=== PATIENT | male | born 1935 | race Caucasian/White ===

== ENCOUNTER 2021-04-24 17:37 | Emergency (ER) | payer MEDICARE, OTHER, SELFPAY ==
[2021-04-24 17:56] VITALS: BP 166/87; PULSE 56; RESP 16; TEMP 36.9; O2SAT 97
--- NOTE | 2021-04-24 18:32 | ED_ITS ---
HPI - Eye Problem General: Chief complaint: Eye Problems Stated complaint: Something in rt eye Time Seen by Provider: 04/24/21 18:01 History of Present Illness: HPI Narrative: Patient is an 85-year-old male comes to the ED with redness of the right eye. Patient says yesterday he was out using his leaf blower. Denies any foreign body or known injury to right eye. This morning when he woke up he had eye redness in right eye that was localized to the lateral aspect of eye. Denies any eye pain or vision changes. He irrigated his eyes out with some tap water while at home. Associated symptoms: Denies fever(s), headache(s), nausea, neck pain or vomiting Review of Systems Const: Denies: fever(s), chills or fatigue Eyes: Reports: eye redness (Localized redness to right eye); Denies: change in vision or eye discomfort ENMT: Denies: throat pain, odynophagia, nasal discharge or nasal congestion Card: Denies: chest pain, palpitations, edema, swelling of feet/ankles, dyspnea on exertion or orthopnea Resp: Denies: dyspnea, productive cough or non-productive cough GI: Denies: abdominal pain, nausea, vomiting, diarrhea, constipation or hematochezia : Denies: flank pain, difficulty urinating, dysuria or hematuria Musc: Denies: neck pain, back pain or extremity swelling Skin/Breast: Denies: rash or new lesions Neuro: Denies: headache(s), numbness in extremities or weakness in extremities PFS ED PFSH: Medical History ASHD (arteriosclerotic heart disease) HTN (hypertension) Myocardial infarction Surgical History S/P PTCA (percutaneous transluminal coronary angioplasty) Family History Brother CAD (coronary artery disease) Social History Smoking and tobacco status: never smoked Alcohol intake: never Household members: spouse Marital status: service: Yes branch: [employer] Current occupational status: retired Physical Exam Const: COMMON NORMALS: no acute distress, patient oriented x3, healthy appearing and alert GENERAL APPEARANCE: cooperative and comfortable HENMT: COMMON NORMALS: normocephalic HEAD & SCALP: normocephalic MOUTH: Normal oral and palatal mucosa present THROAT: posterior oropharynx normal and uvula midline Eye: COMMON NORMALS: Equal, round and reactive pupils present and EOMs intact bilaterally CONJUNCTIVA: Yes conjunctival abnormal positive right alexandra bconjunctival hemorrhage (Lateral aspect of) PUPIL: Yes Equal, round and reactive pupils present OTHER: No foreign body noted on eye exam. Fluorescein eye dye was performed with lamp and no abrasions noted. Neck/C-Spine: COMMON NORMALS: supple GENERAL: Yes normal visual inspection Resp: COMMON NORMALS: normal respiratory effort, No retractions, No use of accessory muscles and clear to auscultation bilaterally AUSCULTATION: clear to auscultation bilaterally Cardio: COMMON NORMALS: regular rate, regular rhythm, S1 normal heart sound present, S2 normal heart sound present, No gallops present (Cardio), No clicks present (Cardio), No murmurs present (Cardio) and Peripheral pulses 2+ throughout RATE: regular rate RHYTHM: regular rhythm HEART SOUNDS: S1 normal heart sound present and S2 normal heart sound present PERIPHERAL PULSES: Peripheral pulses 2+ throughout GI: COMMON NORMALS: Normal to inspection, nondistended, normoactive bowel sounds present, Soft to palpation, non-tender and no masses PALPATION: Yes Soft to palpation : COMMON NORMALS: Yes no CVA tenderness BLADDER/KIDNEY EXAM: Yes no CVA tenderness Back/Pelvis: COMMON NORMALS: no CVA tenderness Extremity: COMMON NORMALS: normal to inspection Neuro: COMMON NORMALS: patient oriented x3 and moves all extremities SENSORIUM/ORIENTATION: Yes alert Skin: GENERAL SKIN EXAM: dry skin Course Vital Signs: Vital signs: Vital Signs Temperature 98.4 F 04/24/21 17:56 Pulse Rate 56 L 04/24/21 17:56 Respiratory Rate 16 04/24/21 17:56 Blood Pressure 166/87 04/24/21 17:56 Pulse Oximetry 97 04/24/21 17:56 MDM - Eye Problem MDM Narrative: Medical decision making narrative: Patient is 85-year-old male comes to the ED with right eye redness. Patient denies any foreign body or injury to right eye. Denies any pain or vision changes. He woke up this morning with redness and no other symptoms. Exam of eyes shows subconjunctival hemorrhage that is localized to the lateral aspect of right eye. No foreign body seen. Fluorescein eye used with lamp and no abrasions noted. Patient was diagnosed with conjunctival hemorrhage of right eye was discharged home with a prescription for erythromycin eye ointment. He was told to follow-up with his eye doctor within [address] [facility] in 48 hours for further evaluation. Return to ED precautions given. Patient understood agree with plan. Discharge Plan Discharge Patient Disposition: Home Clinical Impression: Conjunctival hemorrhage of right eye Condition: Stable Prescriptions: No Action aspirin [Aspir-81] 81 mg tablet,delayed release (DR/EC) 81 mg PO DAILY RF: 0 carvedilol 3.125 mg tablet 3.125 mg PO BID RF: 0 rosuvastatin 40 mg tablet 40 mg PO DAILY RF: 0 lisinopril 30 mg tablet 30 mg PO DAILY RF: 0 tamsulosin 0.4 mg capsule 0.4 mg PO DAILY RF: 0 amlodipine 5 mg tablet 5 mg PO DAILY Qty: 90 RF: 2 Discharge Orders: Discharge ED (Routine); Ordered 04/24/21 Ordered By: Karl Oropeza Referrals: Terrell Suárez MD [Primary Care Provider] - Discharge Diet: Regular Discharge Activity: Resume usual activity Patient Instructions: Subconjunctival Hemorrhage (ED) Activity Restrictions/Additional Instructions: Follow-up with medical provider as directed. Call your local eye doctor or [facility] on Monday phone number is [phone]. Address is [facility] [address]. take medications as prescribed. Return to the ER or your medical provider if condition worsens. Please read and understand discharge instructions. If any questions, please ask. Coding Level of Care Code ED Fat Pressroom Worker for Dhiraj Grewal
[2021-04-24] MEDS: fluorescein 1 mg Strip EYE-RIGHT (18:37)
[2021-04-24] MEDS: eye irrigation 30 mL Btl EYE-RIGHT (18:37)
[2021-04-24] MEDS: tetracaine 0.5% Op Soln 4 mL Btl 1 DROP EYE-RIGHT (18:37)
[2021-04-24] MEDS: erythromycin Op Oint 1 gm 1 APPLIC EYE-RIGHT (18:42)
== END 2021-04-24 18:49 | disposition home or self-care (01) ==
PROVIDERS: Emergency Provider Physician Assistant; PCP Family Medicine
DX: H11.31 Conjunctival hemorrhage, right eye (principal); Z79.82 Long term (current) use of aspirin; I10 Essential (primary) hypertension; I25.2 Old myocardial infarction
CPT/HCPCS: 99283

== ENCOUNTER → 2022-03-04 08:47 | Outpatient (BNVA) | payer MEDICARE, OTHER, SELFPAY | PROVIDERS: PCP Family Medicine; Visit Provider Internal Medicine | DX: I25.10 Atherosclerotic heart disease of native coronary artery without angina pectoris (principal); I10 Essential (primary) hypertension; I25.2 Old myocardial infarction; Z98.61 Coronary angioplasty status | CPT/HCPCS: 99213; 99214 ==

== ENCOUNTER → 2022-12-14 09:55 | Outpatient (BNVA) | payer MEDICARE, OTHER, SELFPAY | PROVIDERS: PCP Family Medicine; Visit Provider Surgery | DX: K42.9 Umbilical hernia without obstruction or gangrene (principal); K40.90 Unilateral inguinal hernia, without obstruction or gangrene, not specified as recurrent | CPT/HCPCS: 99203 ==

== ENCOUNTER → 2023-03-13 14:52 | Outpatient (BNVA) | payer MEDICARE, OTHER, SELFPAY | PROVIDERS: PCP Family Medicine; Visit Provider Internal Medicine | DX: I25.10 Atherosclerotic heart disease of native coronary artery without angina pectoris (principal); I10 Essential (primary) hypertension; I25.2 Old myocardial infarction | CPT/HCPCS: 99214 ==

== ENCOUNTER 2023-08-16 14:21 | Outpatient (CLI) | payer MEDICARE, OTHER, SELFPAY ==
--- NOTE | 2023-08-16 14:26 | CT_ITS ---
WS: [id number] CT chest wo con [id number] HISTORY: PLEURAL EFFUSION TECHNIQUE: Axial imaging performed through the thorax. Coronal and sagittal reformats are submitted. All CT scans at [facility] use at least one of these dose optimization techniques: automated exposure control; mA and/or kV adjustment per patient size (includes targeted exams where dose is mat ched to clinical indication); or iterative reconstruction. CONTRAST: None DLP: 422.75 mGy.cm COMPARISON: Chest radiograph 07/17/2023 Lungs and central airway: Mild chronically elevated RIGHT diaphragm with basilar atelectasis. There a re also a few calcifications along the diaphragmatic surface. No pleural effusion. Pleura: Normal. No pleural effusion. Heart and pericardium: Mild cardiomegaly and coronary artery calcifications. Mediastinum and alexandra: Mediastinal and hilar calcified lymph nodes. No enlarged noncalcified lymph nod es. Vessels: Ectatic atherosclerosis thoracic aorta with mild dilatation to 3.5 cm. Dilated pulmonary art wm. Chest wall and lower neck: No soft tissue masses. Upper abdomen: Small hiatal hernia. Decrease in size since 2013 of a complex cyst in the upper pole R IGHT kidney now measuring 1.4 cm. Splenic granulomata. There are few diverticula noted in the transve rse colon. Osseous structures: Mild thoracic spondylosis. IMPRESSION: 1. Chronically elevated RIGHT diaphragm with basilar atelectasis. 2. No RIGHT pleural effusion. 3. Mild cardiomegaly and coronary artery calcifications. 4. Moderate atherosclerosis and ectasia thoracic aorta.
== END 2023-08-16 14:22 | disposition home or self-care (01) ==
LOC: RAD 14:23
PROVIDERS: PCP Family Medicine; Visit Provider Family Medicine
DX: J90 Pleural effusion, not elsewhere classified (principal); I25.10 Atherosclerotic heart disease of native coronary artery without angina pectoris; I77.810 Thoracic aortic ectasia
CPT/HCPCS: 71250

== ENCOUNTER → 2023-12-11 15:01 | Outpatient (BNVA) | payer MEDICARE, OTHER, SELFPAY | PROVIDERS: PCP Family Medicine; Visit Provider Internal Medicine | DX: I25.10 Atherosclerotic heart disease of native coronary artery without angina pectoris (principal); I10 Essential (primary) hypertension; I25.2 Old myocardial infarction | CPT/HCPCS: 99214 ==

== ENCOUNTER 2024-04-27 14:09 | Emergency (ER) | payer MEDICARE, OTHER, SELFPAY ==
[2024-04-27 14:24] VITALS: BP 165/76; PULSE 64; RESP 18; TEMP 36.4; O2SAT 97
--- NOTE | 2024-04-27 15:00 | XRR_ITS ---
PROCEDURE INFORMATION: Exam: XR Left Ankle Exam date and time: 04/27/2024 5:45 PM Age: 88 years old Clinical indication: Left; Patient HX: Lt ankle pain after fall; Attn to area just below lt clavicle TECHNIQUE: Imaging protocol: Radiologic exam of the left ankle. Views: 3 or more views. COMPARISON: CR XR foot LT min 3V* [id number] 04/27/2024 5:45 PM FINDINGS: Bones/joints: No ankle fracture. Fracture through the base of the 5th metatarsal again noted. Soft tissues: Normal. XR/XR ankle LT min 3V* [id number] IMPRESSION: 1. No acute osseous abnormalities of the ankle. 2. Fracture through the base of the 5th metatarsal.
--- NOTE | 2024-04-27 15:00 | XRR_ITS ---
PROCEDURE INFORMATION: Exam: XR Left Foot Exam date and time: 04/27/2024 5:45 PM Age: 88 years old Clinical indication: Left; Patient HX: Lt foot/ankle pain post fall TECHNIQUE: Imaging protocol: Radiologic exam of the left foot. Views: 3 or more views. COMPARISON: CR XR ankle LT min 3V* [id number] 04/27/2024 5:45 PM FINDINGS: Bones/joints: Fracture through the base of the 5th metatarsal. Soft tissues: Normal. XR/XR foot LT min 3V* [id number] IMPRESSION: Fracture through the base of the 5th metatarsal.
--- NOTE | 2024-04-27 15:00 | XRR_ITS ---
PROCEDURE INFORMATION: Exam: XR Left Shoulder Exam date and time: 04/27/2024 5:45 PM Age: 88 years old Clinical indication: Left; Patient HX: Lt shoulder pain after fall; Attn to area just below lt clavicle TECHNIQUE: Imaging protocol: Radiologic exam of the left shoulder. Views: 2 or more views. COMPARISON: CT chest wo con [id number] 08/16/2023 2:31 PM FINDINGS: Bones/joints: Osseous structures are intact. Negative for fracture or dislocation. Soft tissues: Normal. XR/XR shoulder LT min 2V* [id number] IMPRESSION: No acute findings.
--- NOTE | 2024-04-27 15:00 | XRR_ITS ---
PROCEDURE INFORMATION: Exam: XR Left Hand Exam date and time: 04/27/2024 5:45 PM Age: 88 years old Clinical indication: Left; Patient HX: Lt hand pain post fall TECHNIQUE: Imaging protocol: Radiologic exam of the left hand. Views: 3 or more views. COMPARISON: No relevant prior studies available. FINDINGS: Bones/joints: Osseous structures are intact. Negative for fracture. Soft tissues: Normal. XR/XR hand LT min 3V* [id number] IMPRESSION: No acute findings.
--- NOTE | 2024-04-27 18:38 | XRR_ITS ---
PROCEDURE INFORMATION: Exam: XR Chest Exam date and time: 04/27/2024 6:43 PM Age: 88 years old Clinical indication: Injury or trauma; Blunt trauma (contusions or hematomas); Patient HX: C/O left chest wall pain post fall today. TECHNIQUE: Imaging protocol: Radiologic exam of the chest. Views: 2 views. COMPARISON: CT chest con [id number] 08/16/2023 2:31 PM FINDINGS: Lungs: Unremarkable. No consolidation. Pleural spaces: Unremarkable. No pleural effusion. No pneumothorax. Heart/Mediastinum: Unremarkable. No cardiomegaly. Bones/joints: Unremarkable. XR/XR chest 2V* [id number] IMPRESSION: No acute findings.
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
[2024-04-27 20:44] VITALS: BP 148/95; PULSE 87; RESP 16; O2SAT 95
== END 2024-04-27 20:38 | disposition home or self-care (01) ==
PROVIDERS: Emergency Provider Nurse Practitioner; PCP Family Medicine
DX: S92.352A Displaced fracture of fifth metatarsal bone, left foot, initial encounter for closed fracture (principal); S60.512A Abrasion of left hand, initial encounter; V09.9XXA Pedestrian injured in unspecified transport accident, initial encounter; I25.2 Old myocardial infarction; I10 Essential (primary) hypertension
CPT/HCPCS: 71046; 73030; 73130; 73610; 73630; 99284; L3260

== ENCOUNTER → 2024-09-09 11:16 | Outpatient (BNVA) | payer MEDICARE, OTHER, SELFPAY | PROVIDERS: PCP Family Medicine; Visit Provider Internal Medicine | DX: I25.10 Atherosclerotic heart disease of native coronary artery without angina pectoris (principal); I10 Essential (primary) hypertension; I25.2 Old myocardial infarction; Z95.5 Presence of coronary angioplasty implant and graft; Z87.891 Personal history of nicotine dependence | CPT/HCPCS: 99213 ==